=== PATIENT | male | born 1965 | race Caucasian/White ===

== ENCOUNTER 2020-05-06 00:05 | Outpatient (CLI) | payer BC, SELFPAY ==
[2020-05-06 18:56] LABS: SARS-CoV-2 RNA PCR Negative
== END 2020-05-06 00:06 | disposition home or self-care (01) ==
LOC: ANHCOVIDDT 00:05
PROVIDERS: PCP Family Medicine; Visit Provider Internal Medicine Gastroenterology
DX: Z01.818 Encounter for other preprocedural examination (principal); Z11.59 Encounter for screening for other viral diseases
CPT/HCPCS: 87635; C9803; U0003

== ENCOUNTER 2020-05-08 01:28 | Day surgery (SDC) | payer BC, SELFPAY ==
[2020-04-29 14:20] VITALS: BMI 31.6
[2020-05-08 06:27] VITALS: BP 131/80; PULSE 97; RESP 18; TEMP 37; O2SAT 98
[2020-05-08] MEDS: LACTATED RINGERS 1,000 ML 150 ML IV CONT (06:46)
--- NOTE | 2020-05-08 07:06 | WPDANESEPPF ---
Anes - Initial Pre Proc Eval Procedure: Operation Date: 05/08/20 07:30 Proposed Procedures p Colonoscopy - Master Israel MD Date/Time: 05/08/20 07:06 Surgeon: Master Israel MD Pre Op Diagnosis: Pos Cologaurd Patient Data Age: 55 Gender: M Height: 1.91 m Weight: 114.5 kg Last Vital Signs Temp 37.0 C 05/08/20 06:27 Pulse 97 05/08/20 06:27 Resp 18 05/08/20 06:27 BP 131/80 05/08/20 06:27 Pulse Ox 98 05/08/20 06:27 Allergies Allergy/AdvReac Type Severity Reaction Status Date / Time naproxen Allergy Unknown Verified 02/15/19 09:27 Home Medications Medication Instructions Recorded Confirmed Type allopurinol 300 mg tablet 300 mg PO DAILY #90 tablet 11/06/19 04/29/20 Rx cyclobenzaprine 10 mg tablet 10 mg PO TID PRN #30 tablet 01/24/20 04/29/20 Rx amlodipine 5 mg tablet See Rx Instructions .ROUTE 02/15/20 04/29/20 Rx .COMPLEX #90 tablet diclofenac sodium 75 mg 75 mg PO BID #180 tablet 04/14/20 04/29/20 Rx tablet,delayed release irbesartan 150 mg PO DAILY 05/08/20 05/08/20 History Patient hx anesthesia problems: none Family hx anesthesia problems: none PMFSH Past Medical History Medical History (Updated 05/08/20 @ 07:07 by Gibson Dasilva MD) Benign hypertension FH: CAD (coronary artery disease) H/O: gout HTN (hypertension) Irregular heartbeat Low back pain Obesity Positive colorectal cancer screening using Cologuard test (~02/2020) Family History Family History (Updated 02/15/19 @ 09:47 by DOCTOR UNKNOWN) Father Diabetes mellitus Hypertension Family history of elevated blood lipids Family history of cardiovascular disease Family history of malignant neoplasm of urinary bladder Grandparent Family history of suicide Mother Family history of glaucoma Social History Social History Smoking status: Former smoker (smokes cigars very rarely) Second hand tobacco smoke exposure: No Smoking end date: 11/14/95 Alcohol intake: current Gender identity (if verbalized by the patient): Male Sexual Orientation (if Verbalized by the Patient): Straight or Heterosexual Anes - Eval Final PreProcedure Day of Procedure 05/08/20 07:06 Patient weight: obese Heart: regular rate and rhythm Lungs: clear to auscultation and normal air movement Airway: Mallampati scale class II Neurological: alert and oriented Last oral intake: >/= 8 hours ASA classification: II Emergent: no Anesthetic plan: proceed Anesthesia type and monitoring: general GIVS Informed Consent: The patient's anesthetic plan and its attendant risks and benefits were discussed with the patient/family/POA. Questions were solicited and answers provided to the satisfaction of the patient/family/POA.
[2020-05-08 07:50] VITALS: BP 119/80; PULSE 86; RESP 22; O2SAT 96
--- NOTE | 2020-05-08 07:57 | WPDGICN ---
Assessment and Plan Assessment and plan (1) Obesity: Code(s): E66.9 - Obesity, unspecified Status: Acute (2) Positive colorectal cancer screening using Cologuard test: Code(s): R19.5 - Other fecal abnormalities Status: Acute Assessment and Plan: Plan is for screening colonoscopy because of positive: Guard test. Also because of history of colon polyps. High-fiber diet is advised for his history of irritable bowel syndrome. Further recommendations will be given after endoscopy. (3) History of colon polyps: Code(s): Z86.010 - Personal history of colonic polyps Status: Acute GI Consult Note Consult date/time: 05/08/20 07:57 HPI: Don Holland is a 55 year old male Seen in evaluation at the request of Dr. Helena Siu. Patient presents for neoplasia screening colonoscopy. He recently had a positive screening: Guard test. He has a distant history of colon polyps in 1996. He states his current weight appetite bowel movements are normal. He has been described as having irritable bowel syndrome in the past. Intakes fiber supplementation recently began to take probiotics. He denies any blood in his stools he denies any weight loss. His family history is noncontributory. Review of Systems Review of Systems: All systems reviewed & are unremarkable except as noted in HPI and below PMFSH Past Medical History Medical History Benign hypertension FH: CAD (coronary artery disease) H/O: gout HTN (hypertension) Irregular heartbeat Low back pain Obesity Positive colorectal cancer screening using Cologuard test (~02/2020) Family History Family History Father Diabetes mellitus Hypertension Family history of elevated blood lipids Family history of cardiovascular disease Family history of malignant neoplasm of urinary bladder Grandparent Family history of suicide Mother Family history of glaucoma Social History Social History Smoking status: Former smoker (smokes cigars very rarely) Second hand tobacco smoke exposure: No Smoking end date: 11/14/95 Alcohol intake: current Gender identity (if verbalized by the patient): Male Sexual Orientation (if Verbalized by the Patient): Straight or Heterosexual Meds Home Medications and Allergies Home Medications Medication Instructions Recorded Confirmed Type allopurinol 300 mg tablet 300 mg PO DAILY #90 tablet 11/06/19 04/29/20 Rx cyclobenzaprine 10 mg tablet 10 mg PO TID PRN #30 tablet 01/24/20 04/29/20 Rx amlodipine 5 mg tablet See Rx Instructions .ROUTE 02/15/20 04/29/20 Rx .COMPLEX #90 tablet diclofenac sodium 75 mg 75 mg PO BID #180 tablet 04/14/20 04/29/20 Rx tablet,delayed release irbesartan 150 mg PO DAILY 05/08/20 05/08/20 History Allergies Allergy/AdvReac Type Severity Reaction Status Date / Time naproxen Allergy Unknown Verified 02/15/19 09:27 Vital Signs Vital Signs - 24 hr 05/08/20 06:27 05/08/20 07:50 Temperature 37.0 C Pulse Rate 97 86 Respiratory Rate 18 22 H Blood Pressure 131/80 119/80 Pulse Oximetry 98 96 Exam Narrative: Exam Narrative: Physical exam reveals patient to be alert. Vital signs stable. HEENT exam unremarkable. Lungs are clear to auscultation and percussion. Heart is without murmur or extra sounds. Abdominal exam bowel sounds are present soft nontender with no hepatosplenomegaly digital external rectal exam normal.
[2020-05-08 08:00] VITALS: BP 118/82; PULSE 81; RESP 19; O2SAT 95
[2020-05-08 08:10] VITALS: BP 127/95; PULSE 76; RESP 15; O2SAT 98
[2020-05-08 08:18] VITALS: BP 108/82; PULSE 84; RESP 20; O2SAT 99
== END 2020-05-08 08:32 | disposition home or self-care (01) ==
PROVIDERS: PCP Family Medicine; Visit Provider Internal Medicine Gastroenterology
PROC: 0DJD8ZZ Inspection of Lower Intestinal Tract, Via Natural or Artificial Opening Endoscopic (ICD-10-PCS; CPT 45378; principal; 2020-05-08 07:30)
DX: K51.014 Ulcerative (chronic) pancolitis with abscess (principal); R19.5 Other fecal abnormalities; Z86.010 Personal history of colon polyps; E66.9 Obesity, unspecified; K57.30 Diverticulosis of large intestine without perforation or abscess without bleeding; K64.8 Other hemorrhoids
CPT/HCPCS: 45380; 88305; J2704; J7120